=== PATIENT | female | born 1950 | race Caucasian/White ===

== ENCOUNTER 2023-04-21 16:35 | Emergency (ER) | payer MEDICARE ==
[~2023-04-21] VITALS: Ht 162.6 cm; Wt 81.8 kg
[2023-04-21 16:55] VITALS: BP 143/59; PULSE 81; RESP 18; TEMP 98.5; O2SAT 98
== END 2023-04-21 19:52 | disposition left against medical advice (07) ==
LOC: ER 16:36
DX: L02.212 Cutaneous abscess of back [any part, except buttock and flank] (principal); Z53.21 Procedure and treatment not carried out due to patient leaving prior to being seen by health care provider
CPT/HCPCS: 99281